=== PATIENT | male | born 1990 | race Caucasian/White ===

== ENCOUNTER 2019-12-02 20:49 | Emergency (ER) | payer OTHER ==
[2019-12-02 20:58] VITALS: BP 145/66; PULSE 97; RESP 20; TEMP 99.1
[2019-12-02] MEDS ORDERED: LIDOCAINE 1% INJ 10MG/ML (20 ML MDV) SQ ONE (21:10)
--- NOTE | 2019-12-02 22:11 | ED ---
Wound/Laceration HPI - General Chief Complaint: Wound/Laceration Stated Complaint: leg laceration Time Seen by Provider: 12/02/19 21:02 Source: patient Mode of arrival: ambulatory Limitations: no limitations - History of Present Illness Initial Comments: Patient is a 29-year-old male presenting to emergency Department with complaints of a laceration on his right upper leg. Patient states he was moving some items in his house when a sword fell onto his right leg. Bleeding is controlled at this time. He denies being on blood thinners. He states his tetanus vaccine is up-to-date. He has no other complaints at this time. Upon arrival to the ER his vitals are stable. - Related Data Allergies Allergy/AdvReac Type Severity Reaction Status Date / Time No Known Allergies Allergy Verified 12/02/19 20:58 Review of Systems ROS Statement: Those systems with pertinent positive or pertinent negative responses have been documented in the HPI. ROS Other: All systems not noted in ROS Statement are negative. Past Medical History Past Medical History: No Reported History History of Any Multi-Drug Resistant Organisms: None Reported Past Surgical History: No Surgical Hx Reported Past Psychological History: No Psychological Hx Reported Smoking Status: Never smoker Past Alcohol Use History: None Reported Past Drug Use History: None Reported General Exam - General Exam Comments Initial Comments: GENERAL: Well-appearing, well-nourished and in no acute distress. HEAD: Atraumatic, normocephalic. EYES: Pupils equal round and reactive to light, extraocular movements intact, sclera anicteric, conjunctiva are normal. ENT: Nares patent, oropharynx clear without exudates. Moist mucous membranes. NECK: Normal range of motion, supple without lymphadenopathy or JVD. LUNGS: Breath sounds clear to auscultation bilaterally and equal. No wheezes rales or rhonchi. HEART: Regular rate and rhythm without murmurs, rubs or gallops. ABDOMEN: Soft, nontender, normoactive bowel sounds. No guarding, no rebound. No masses appreciated. EXTREMITIES: Normal range of motion, no pitting or edema. No clubbing or cyanosis. NEUROLOGICAL: Normal speech, normal gait. PSYCH: Normal mood, normal affect. SKIN: Warm, Dry, normal turgor, no rashe. Patient has a 2 cm vertical laceration to the mid right upper thigh. Bleeding is controlled at this time. Limitations: no limitations Course Vital Signs 12/02/19 20:54 Temperature 99.1 F Pulse Rate 97 Respiratory 20 Rate Blood Pressure 145/66 O2 Sat by Pulse 99 Oximetry Procedures - Laceration Laceration #1 Consent Obtained: verbal consent Indication: laceration Site: lower extremity (Right middle upper leg) Size (cm): 2 Description: linear Depth: simple, single layer Anesthetic Used: lidocaine 1% Anesthesia Technique: local infiltration Amount (mls): 3 Pre-repair: irrigated extensively Type of Sutures: nylon Size of Sutures: 4-0 Number of Sutures: 5 Technique: simple, interrupted Patient Tolerated Procedure: well Medical Decision Making - Medical Decision Making Patient is a 29-year-old male presenting with a 2 cm laceration to his right middle upper thigh. Bleeding is controlled. Patient's tetanus vaccine is up-to-date. Patient's wound was irrigated and closed with 5, 4-0 sutures. Patient tolerated procedure well. Patient will have sutures removed in 7-10 days. Return parameters were discussed with the patient he verbalizes understanding. Patient stable for discharge. Disposition Clinical Impression: Laceration of right thigh without complication Disposition: HOME SELF-CARE Condition: Stable Instructions (If sedation given, give patient instructions): Care For Your Stitches (ED) Additional Instructions: Please return to the Emergency Department if symptoms worsen or any other concerns. Sutures need to removed in 7-10 days. Keep covered if causing irritation. Watch for signs of infection such as increasing redness, yellow drainage, pain around the wound. Is patient prescribed a controlled substance at d/c from ED?: No Referrals: None,Stated [REFERRING] - 1-2 days
== END 2019-12-02 22:23 | disposition home or self-care (01) ==
LOC: EC 20:49
DX: S71.111A Laceration without foreign body, right thigh, initial encounter (principal); W26.1XXA Contact with sword or dagger, initial encounter; Y93.89 Activity, other specified; Y92.239 Unspecified place in hospital as the place of occurrence of the external cause
CPT/HCPCS: 99282; 12001; J2001